=== PATIENT | female | born 1965 | race Caucasian/White ===

== ENCOUNTER 2016-08-20 17:01 | Emergency (ER) | payer BC, OTHER ==
[~2016-08-20] VITALS: Ht 162.6 cm; Wt 123.8 kg
[2016-08-20] MEDS ORDERED: SODIUM CHLORIDE 0.9% 1000ML 1,000 ML IV SCH (17:10)
--- NOTE | 2016-08-20 17:12 | EMERGENCY ROOM VISIT NOTE ---
History Report prepared by Adriano: Silvia Azul Under the Supervision of: Dr. Bryce Greenberg M.D. First contact with patient: 17:07 Chief Complaint: STROKE SYMPTOMS Stated Complaint: STROKE ALERT History of Present Illness The patient is a 51 year old female who presents to the Emergency Room with complaints of persisting stroke-like symptoms that began within the last few hours. Per patient's friend, she was asymptomatic at noon today and she believes that she was asymptomatic at 3:30PM today as her boyfriend saw the patient at that time. Since then, she has developed slurred speech and left sided weakness. 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 Her most recent stroke was about 2 years ago. During each, she loses capability to talk for about 36-48 hours. Otherwise she does not have any residual deficits. She does not have a history of seizures. Past medical history includes diabetes. The patient is on Coumadin and 1000 mg Metformin twice a day, but the patient has not been taking her medications for 2 days. Her estimates that she has not been compliant with her medications for months. History is limited secondary to the patient's condition. Source of History: patient, spouse/significant other, friend History Limited By: other (patient's condition) Onset: this afternoon Position: other (global) Timing: other (persistent) Associated Symptoms: + weakness (left side) Note: Other symptoms: slurred speech Review of Systems See HPI for pertinent positives & negatives. A total of 10 systems reviewed and were otherwise negative. Past Medical & Surgical Medical Problems: (1) CVA (cerebral vascular accident) (2) Diabetes Family History No pertinent family history stated. Social History Marital Status: Current/Historical Medications Unable to Obtain Active Prescriptions or Reported Meds Physical Exam Vital Signs Date Time Temp Pulse Resp B/P Pulse Ox O2 Delivery O2 Flow Rate FiO2 08/20/16 19:37 94 18 138/69 100 Room Air 08/20/16 18:52 99 18 158/63 100 Room Air 08/20/16 17:57 102 18 115/65 98 Room Air 08/20/16 17:34 99 Room Air 08/20/16 17:28 100 08/20/16 17:27 36.6 99 18 138/69 92 Room Air Physical Exam GENERAL: Patient is a healthy-appearing well-nourished 51 year old female HEAD: Normocephalic atraumatic EYES: Ocular movements intact pupils equal and react to light OROPHARYNX mucous membranes are moist no exudates present no erythema or edema present NECK: Supple no nuchal rigidity CHEST: Good equal expansion LUNGS: Clear and equal to auscultation CARDIAC: Normal S1 and S2 ABDOMEN: Soft nontender no guarding BACK: No CVA tenderness EXTREMITIES: No pain upon palpation normal muscle strength in all groups no clubbing cyanosis or edema NEURO: Patient is following commands is answering questions appropriately. Alert and oriented x3. Weakness to the left arm. Left sided facial droop. Medical Decision & Procedures ER Provider Diagnostic Interpretation: Radiology results as stated below per my review and radiologist interpretation: HEAD CT NONCONTRAST CT DOSE: 1498.81 mGy.cm HISTORY: Right-sided weakness. TECHNIQUE: Multiaxial CT images of the head were performed without the use of intravenous contrast. Automated exposure control was utilized for this study. Comparison: None. Findings: The paranasal sinuses and mastoid air cells are clear. Focal areas of encephalomalacia within the left frontal lobe, left basal ganglia, and right parietal periventricular white matter consistent with old infarcts. No mass, hematoma, midline shift, or acute infarct. Impression: Old infarcts. No acute intracranial abnormality. Electronically signed by: Edward Shaver M.D. 08/20/2016 5:21 PM Dictated Date/Time: 08/20/2016 5:15 PM CHEST ONE VIEW PORTABLE HISTORY: Stroke symptoms. COMPARISON: None. FINDINGS: The cardiac silhouette is mildly enlarged. No focal lung consolidations. No evidence for pulmonary edema. No pleural effusions. No pneumothorax. IMPRESSION: Mild cardiomegaly. Electronically signed by: Edward Shaver M.D. 08/20/2016 5:55 PM Dictated Date/Time: 08/20/2016 5:55 PM Laboratory Results 08/20/16 17:18 Red Blood Count 4.84, Mean Corpuscular Volume 86.0, Mean Corpuscular Hemoglobin 28.5, Mean Corpuscular Hemoglobin Concent 33.2, Mean Platelet Volume 9.0, Neutrophils (%) (Auto) 51.4, Lymphocytes (%) (Auto) 37.8, Monocytes (%) (Auto) 7.7, Eosinophils (%) (Auto) 2.5, Basophils (%) (Auto) 0.3, Neutrophils # (Auto) 5.91, Lymphocytes # (Auto) 4.36, Monocytes # (Auto) 0.89, Eosinophils # (Auto) 0.29, Basophils # (Auto) 0.03 08/20/16 17:18 Test 08/20/16 17:18 08/20/16 18:50 08/20/16 19:34 White Blood Count 11.52 K/uL (4.8-10.8) Red Blood Count 4.84 M/uL (4.2-5.4) Hemoglobin 13.8 g/dL (12.0-16.0) Hematocrit 41.6 % (37-47) Mean Corpuscular Volume 86.0 fL (80-100) Mean Corpuscular Hemoglobin 28.5 pg (25-34) Mean Corpuscular Hemoglobin Concent 33.2 g/dl (32-36) Platelet Count 232 K/uL (130-400) Mean Platelet Volume 9.0 fL (7.4-10.4) Neutrophils (%) (Auto) 51.4 % Lymphocytes (%) (Auto) 37.8 % Monocytes (%) (Auto) 7.7 % Eosinophils (%) (Auto) 2.5 % Basophils (%) (Auto) 0.3 % Neutrophils # (Auto) 5.91 K/uL (1.4-6.5) Lymphocytes # (Auto) 4.36 K/uL (1.2-3.4) Monocytes # (Auto) 0.89 K/uL (0.11-0.59) Eosinophils # (Auto) 0.29 K/uL (0-0.5) Basophils # (Auto) 0.03 K/uL (0-0.2) RDW Standard Deviation 42.4 fL (36.4-46.3) RDW Coefficient of Variation 13.4 % (11.5-14.5) Immature Granulocyte % (Auto) 0.3 % Immature Granulocyte # (Auto) 0.04 K/uL (0.00-0.02) Prothrombin Time 12.3 SECONDS (9.0-12.0) Bedside Prothrombin Time INR 1.3 (0.9-1.1) Prothromb Time International Ratio 1.1 (0.9-1.1) Activated Partial Thromboplast Time 28.2 SECONDS (21.0-31.0) Partial Thromboplastin Ratio 1.1 Anion Gap 6.0 mmol/L (3-11) Estimated GFR () 88.2 Estimated GFR (Non- 76.1 BUN/Creatinine Ratio 19.4 (10-20) Calcium Level 8.7 mg/dl (8.5-10.1) Total Creatine Kinase 150 U/L (26-192) Creatine Kinase MB 1.5 ng/ml (0.5-3.6) Creatine Kinase MB Ratio 1.0 (0-3.0) Troponin I < 0.015 ng/ml (0-0.045) Urine Color YELLOW Urine Appearance CLEAR (CLEAR) Urine pH 5.5 (4.5-7.5) Urine Specific [place] 1.007 (1.000-1.030) Urine Protein NEG (NEG) Urine Glucose (UA) NEG (NEG) Urine Ketones NEG (NEG) Urine Occult Blood NEG (NEG) Urine Nitrite NEG (NEG) Urine Bilirubin NEG (NEG) Urine Urobilinogen NEG (NEG) Urine Leukocyte Esterase NEG (NEG) Urine Opiates Screen NEG (NEG) Urine Methadone, Qualitative NEG (NEG) Urine Barbiturates NEG (NEG) Urine Phencyclidine (PCP) Level NEG (NEG) Ur Amphetamine/Methamphetamine NEG (NEG) MDMA (Ecstasy) Screen NEG (NEG) Urine Benzodiazepines Screen NEG (NEG) Urine Cocaine Metabolite NEG (NEG) Urine Marijuana (THC) POS (NEG) Bedside Glucose 168 mg/dl (70-90) Labs reviewed by ED physician. Medications Administered Medications (Trade) Dose Ordered Sig/Kirsten Route Start Time Stop Time Status Last Admin Dose Admin Sodium Chloride (Nss 1000ml) 1,000 ml @ 50 mls/hr Q20H IV 08/20/16 17:10 08/20/16 20:57 DC 08/20/16 17:45 50 MLS/HR Aspirin (Aspirin Chew) 324 mg STK-MED ONCE .ROUTE 08/20/16 19:04 08/20/16 19:07 DC 08/20/16 19:08 324 MG Ondansetron HCl (Zofran Inj) 4 mg NOW STAT IV 08/20/16 19:28 08/20/16 19:29 DC 08/20/16 19:38 4 MG ECG Indication: weakness Rate (beats per minute): 92 Rhythm: normal sinus Findings: no acute ischemic change, no ectopy, other (old inferior and anterior infarct) ED Course 1700: The patient was evaluated in room B1. A complete history and physical examination was performed. 1710: Ordered NSS 1000 ml @ 50 mls/hr IV. 1730: [facility] was paged at this time. 1743: I discussed the case with Dr. Conchita Lee. He will evaluate the patient via Telestroke. 1830: The patient will be transferred to [facility] for further intervention. 1853: Due to weather conditions, helicopter from multiple services were not available to transport the patient. 1900: At this point, there is a [facility] crew in the hospital and she will be transported when a helicopter arrives. [facility] refused to fly. 190: Ordered Aspirin 324 mg PO. 1927: Ordered Zofran Inj 4 mg IV. 1999: The patient is now being transported via [facility] to [facility]. Medical Decision Differential diagnosis: Etiologies such as metabolic, infection, hypo/hyperglycemia, electrolyte abnormalities, cardiac sources, intracerebral event, toxicologic, neurologic, as well as others were entertained. This is a 51-year-old female who is from [facility] presents emergency Department with a history of 4 CVAs in the past. The patient has left-sided hemicolectomy cannot see out of the left side of her eye. In addition the patient has significant deficits on the left side of her body. Based on these findings the patient was immediately sent for CAT scan of the head which was concerning for old infarcts. The patient's INR is 1.2 and a consultation was immediately placed with the [facility] neurologist. Neurologist Dr. Dana Tomas recommended that the patient receive TPA. I did multiple discussions with the patient over the risks of TPA however she would not consent to TPA. Based on the acuteness of her findings the decision was made to transfer her to an acute care facility. There is a delay in doing this however due to weather. [facility] was made available patient was given aspirin here in emergency department. Family was in agreement with the treatment plan. Consults Time Called: 1730 Consulting Physician: Dr. Conchita [facility] Returned Call: [phone] I discussed the case with him. He will evaluate the patient via Telestroke. Impression Primary Impression: CVA (cerebral vascular accident) Critical Care I have personally spent greater than 90 minutes of critical care time in the direct management of this patient. This includes bedside care, interpretation of diagnostic studies, and testing, discussion with consultants, patient, and family members, and other required patient management activities. This 90 minutes is in excess of all separately billable procedures. Scribe Attestation The scribe's documentation has been prepared under my direction and personally reviewed by me in its entirety. I confirm that the note above accurately reflects all work, treatment, procedures, and medical decision making performed by me. Departure Information Dispostion Transfer Acute Care Facility Prescriptions Unable to Obtain Active Prescriptions or Reported Meds Forms HOME CARE DOCUMENTATION FORM, IMPORTANT VISIT INFORMATION Patient Instructions My [facility] Problem Qualifiers Primary Impression: CVA (cerebral vascular accident) CVA mechanism: unspecified Qualified Codes: I63.9 - Cerebral infarction, unspecified
--- NOTE | 2016-08-20 17:22 | DIAGNOSTIC IMAGING REPORT ---
HEAD CT NONCONTRAST CT DOSE: 1498.81 mGy.cm HISTORY: Right-sided weakness. TECHNIQUE: Multiaxial CT images of the head were performed without the use of intravenous contrast. Automated exposure control was utilized for this study. Comparison: None. Findings: The paranasal sinuses and mastoid air cells are clear. Focal areas of encephalomalacia within the left frontal lobe, left basal ganglia, and right parietal periventricular white matter consistent with old infarcts. No mass, hematoma, midline shift, or acute infarct. Impression: Old infarcts. No acute intracranial abnormality. Electronically signed by: Edward Shaver M.D. 08/20/2016 5:21 PM Dictated Date/Time: 08/20/2016 5:15 PM
[2016-08-20 17:27] VITALS: TEMP 36.6; Ht 162.6 cm; Wt 123.8 kg
[2016-08-20 17:31] LABS: BASO % 0.3 %; BASO ABS # 0.03 K/uL (0-0.2); COMPLETE YES; EOS % 2.5 %; HEMATOCRIT 41.6 % (37-47); IG% 0.3 %; LYMPH % 37.8 %; LYMPH ABS # 4.36 K/uL (1.2-3.4); MEAN CORPUSCULAR HEMOGLOBIN 28.5 pg (25-34); MEAN CORPUSCULAR HGB CONC 33.2 g/dl (32-36); MONO % 7.7 %; NEUT % 51.4 %; PLATELET COUNT 232 K/uL (130-400); RED BLOOD COUNT 4.84 M/uL (4.2-5.4); WHITE BLOOD COUNT 11.52 K/uL (4.8-10.8)
[2016-08-20 17:34] VITALS: O2SAT 99
[2016-08-20 17:49] LABS: BLOOD UREA NITROGEN 17 mg/dl (7-18); BUN/CREATININE RATIO 19.4 (10-20); CALCIUM 8.7 mg/dl (8.5-10.1); CARBON DIOXIDE 28 mmol/L (21-32); CHLORIDE 105 mmol/L (98-107); CREATININE 0.89 mg/dl (0.60-1.20); GLUCOSE 182 mg/dl (70-99); POTASSIUM 3.9 mmol/L (3.5-5.1); SODIUM 139 mmol/L (136-145)
[2016-08-20 17:50] LABS: INR 1.1 (0.9-1.1); PARTIAL THROMBOPLASTIN RATIO 1.1; PROTHROMBIN TIME (PATIENT) 12.3 SECONDS (9.0-12.0)
--- NOTE | 2016-08-20 17:56 | DIAGNOSTIC IMAGING REPORT ---
CHEST ONE VIEW PORTABLE HISTORY: Stroke symptoms. COMPARISON: None. FINDINGS: The cardiac silhouette is mildly enlarged. No focal lung consolidations. No evidence for pulmonary edema. No pleural effusions. No pneumothorax. IMPRESSION: Mild cardiomegaly. Electronically signed by: Edward Shaver M.D. 08/20/2016 5:55 PM Dictated Date/Time: 08/20/2016 5:55 PM
[2016-08-20] MEDS ORDERED: ALTEPLASE, RECOMBINANT 1 MG/ML 2 ML VIAL IV STA (18:25)
[2016-08-20] MEDS ORDERED: ASPIRIN 324 MG CHEW ONE (19:04)
[2016-08-20] MEDS ORDERED: ASPIRIN 81 MG CHEW PO STA (19:06)
[2016-08-20 19:08] LABS: URINE APPEARANCE CLEAR (CLEAR); URINE BILIRUBIN NEG (NEG); URINE COLOR YELLOW; URINE NITRITE NEG (NEG); URINE PH 5.5 (4.5-7.5); URINE SPECIFIC GRAVITY 1.007 (1.000-1.030); UROBILINOGEN NEG (NEG); ZZURINE CULT IF INDIC CATH NO
[2016-08-20 19:14] LABS: MANUAL MICROSCOPIC REQUIRED? NO; REVIEW REQ? NO
[2016-08-20] MEDS ORDERED: ONDANSETRON INJ 2 MG/ML 2 ML VIAL IV STA (19:28)
[2016-08-20 19:37] VITALS: BP 138/69; PULSE 94; O2SAT 100
[2016-08-20 19:38] LABS: BENZODIAZEPINE, URINE NEG (NEG); COCAINE,URINE NEG (NEG); PHENCYCLIDINE, URINE NEG (NEG)
== END 2016-08-20 20:10 | disposition short-term general hospital (02) ==
LOC: EDBD 17:01 → C.EDB 17:07
DX: I63.9 Cerebral infarction, unspecified (principal); Z86.73 Personal history of transient ischemic attack (TIA), and cerebral infarction without residual deficits; E11.9 Type 2 diabetes mellitus without complications; Z79.01 Long term (current) use of anticoagulants